=== PATIENT | female | born 1975 | race Caucasian/White ===

== ENCOUNTER 2016-09-11 23:07 | Emergency (ER) | payer OTHER ==
[2016-09-11 23:30] VITALS: BP 161/109; PULSE 118; RESP 18; O2SAT 98
--- NOTE | 2016-09-12 00:31 | ED.REPORT ---
HPI-Extremity Problem Lower Date of Service Sep 12, 2016 ED Provider: Kathrin ReinosoO. Healthy 41-year-old female presents with right anterior hip and posterior proximal buttock pain. She was standing at work when she spun about and she developed sharp pain in her anterior hip. This was about 2:00. Since then the pain has steadily increased. Any motion at the right hip causes rather significant pain. No history of DVT or PE. No direct trauma. No numbness weakness or paresthesias. Nursing Notes Stated Complaint: RIGHT HIP PAIN Chief Complaint: Extremity Trauma Nursing Notes Reviewed: Yes Allergies: Coded Allergies: No Known Allergies (Unverified , 09/11/16) General Time Seen by MD: 00:31 Chief Complaint Other (Right Hip Pain) Hx Obtained From: Patient Arrived By: Walk-in Onset Occurred: 5 - 8 hours ago Symptom Duration: Since onset Caused by: Mechanism unknown Context: Occurred at: Workplace Location: : Hip right Quality: Painful Severity: Current: Moderate Severity: Maximum: Moderate Associated with: Denies: Fever Exacerbated by: Bending Pertinent Negative: Relieved by nothing Immunizations: Unknown Recent Healthcare: No recent doctor visit Past Medical History Past Medical History None reported Past Surgical History None reported Smoking History Unknown if Ever Smoker Ambulatory Status Independent Review of Systems Constitutional: Denies: Fever Musculoskeletal: Reports: Joint pain (Right hip) Complete sys rev & neg: except as marked. Respiratory: Denies: Non-productive cough, Shortness of breath GI: Denies: Vomiting Physical Exam Initial Vital Signs Vital Signs (First) Date Time Temp Pulse Resp B/P Pulse Ox O2 Delivery O2 Flow Rate FiO2 09/11/16 23:30 36.7 118 18 161/109 98 Room Air Initial VS: Reviewed Head / Eyes: Atraumatic, Normocephalic ENT: Conjunctiva normal, No scleral icterus Neck: Supple, Full range of motion Respiratory: Breath sounds normal, Clear to auscultation, No respiratory distress Cardiovascular: Regular rate & rhythm, Heart sounds normal Skin: Warm, Dry, No cyanosis Neurologic: Alert, Oriented, Nonfocal Psychiatric: Mood/affect normal, Behavior normal, Normal thought content Lower Extremity / Pelvis / MS: Neurologic intact, Vascular intact (Good pulses) Lower Ext Brief Normals: Hip L exam normal Right Hip: Positive: Tenderness present... (Anterior hip), Negative: Leg externally rotated Right Thigh: Positive: Tenderness present... (Posterior thigh) General/Constitutional: Awake, Alert Additional Physical Exam: Significant pain with palpation of the anterior proximal thigh muscles. Any internal and or external rotation at the right hip causes pain. Pedal pulses are intact. No leg edema or signs of DVT. Interpretation & Diagnostics X-Ray Interpretation Xray Interpretation: No fracture Study Performed: 2 View X-Ray Ordered: Hip right Interpretation / Wet Read by: Wet read ED physician Re-Eval/Medical Decision Med Decision/Clinical Course I suspect that she either has a labral tear of her right hip or possibly proximal hip flexor muscle strain. X-rays are reassuring that there is no fracture or signs of an avulsion. She was able to get up and move about better with crutches. 60 of Toradol was given that seemed to help the pain a bit. She will be prescribed a short course of Percocet for pain. She is going to limit the activities of her right leg. She will return if she has any problems or any worsening symptoms. At presentation she was tachycardic R she states it was due to pain and she was a bit angry for how long she had to wait. At discharge her heart rate came down about 88. Re-Evaluation/Progress : Time of Eval: 02:00 Patient Status: Condition improved Re-Evaluation/Progress Note: Discussed with patient x-ray results, diagnosis, and plan for discharge. Follow-up and return to the ER instructions given. Patient agrees with plan for care and all questions were addressed. Counseled Regarding: Diagnosis, Need for follow-up, When/why to return to ED Discharge & Departure Impression: Primary Impression: Hip strain Encounter type: initial encounter Laterality: right Qualified Code: S76.011A - Strain of muscle, fascia and tendon of right hip, initial encounter Additional Impression: Hamstring strain Encounter type: initial encounter Laterality: right Qualified Code: S76.311A - Strain of muscle, fascia and tendon of the posterior muscle group at thigh level, right thigh, initial encounter Disposition: Home Discharge Condition All VS Reviewed: Yes Condition: Stable Patient Instructions: Crutch Instructions (ED) Additional Instructions: Thank you for entrusting us with your care. Use crutches for ambulation. Please take Motrin 800mg three times daily as needed for moderate pain. 1-2 Percocet every six hours as needed for sever pain. Do not drink alcohol, drive, or consume acetaminophen while taking Percocet. Call your primary care provider tomorrow for a follow-up appointment next week. If symptoms persists you may need an MRI so follow-up is essential. Return to the ER with any new or worsening symptoms. Referrals: Leo Ku MD (PCP) Scribe Attestation Portions of this note were transcribed by Emperatriz Quijano. I, Dr. Ruiz, personally performed the history, physical exam, and medical decision-making; I reviewed and confirmed the accuracy of the information in the transcribed note. Signed by: Varun Pham, 09/12/2016, 02:45 copies to: Leo Ku MD, Todd P DO Sep 12, 2016 00:31 EMPERATRIZ QUIJANO Sep 12, 2016 02:12
[2016-09-12] MEDS ORDERED: _oxyCODONE/APAP 5-325 mg Tablet PO PRN (02:10)
[2016-09-12] MEDS ORDERED: Ketorolac 30 mg/mL 2 mL Inj IM ONE (02:10)
[2016-09-12 02:47] VITALS: BP 144/104; PULSE 100; RESP 16; O2SAT 96
--- NOTE | 2016-09-12 09:10 | DRSVH ---
PROCEDURE: X-RAY RIGHT HIP COMPLETE, MINIMUM TWO VIEWS ([id number]) INDICATIONS: pain TECHNIQUE: 2 views of the hip were acquired. COMPARISON: None. FINDINGS: Bones: No fractures or dislocations. No suspicious bony lesions. The visualized pelvic ring appear s intact. Mild joint narrowing with periarticular osteophyte formation. Soft tissues: No suspicious soft tissue calcifications or masses. IMPRESSION: No displaced fracture seen. If there is continued pain, followup exam or additional aaron ging such as MRI or CT could be performed for further assessment. Dictated by: Chris Akbar Jamila Interpreted: Giovani Garcia MD on 09/12/2016 at 9:09 Transcribed by: MAHENDRA on 09/12/2016 at 9:09 Approved by: Giovani Garcia M.D. on 09/12/2016 at 13:27
== END 2016-09-12 02:52 | disposition home or self-care (01) ==
LOC: SED 23:07
DX: S76.011A Strain of muscle, fascia and tendon of right hip, initial encounter (principal); S76.311A Strain of muscle, fascia and tendon of the posterior muscle group at thigh level, right thigh, initial encounter; X50.1XXA Overexertion from prolonged static or awkward postures, initial encounter; Y92.59 Other trade areas as the place of occurrence of the external cause; Y93.89 Activity, other specified; Y99.0 Civilian activity done for income or pay
CPT/HCPCS: 73502; 96372; 99284; J1885